=== PATIENT | male | born 1990 | race Caucasian/White ===

== ENCOUNTER 2024-12-10 15:33 | Emergency (ER) | payer OTHER, SELFPAY ==
[2024-12-10 15:39] VITALS: BP 131/94
--- NOTE | 2024-12-10 15:39 | ED.GENMED ---
History of Present Illness
General
Chief Complaint: Skin Surface Trauma
Source: patient
Exam Limitations: none
Time Seen by Provider: 12/10/24 15:35
Nursing documentation reviewed up to this point in time: agreed with
History of Present Illness
History of Present Illness:
The patient is a pleasant 34-year-old man who arrives from jail after cutting his left forearm multiple times. Patient reports that he did it to ' feel pain'. Patient reports he has been feeling depressed lately due to a girl. He reports from
time to time he feels helpless and hopeless. Patient reports he has a history of cutting. He reports that he did not mean to cut deeply, however, there is an area of skin that keeps bleeding, which is why he was brought to the ED.. Patient
reports he cut the skin about 2 hours prior to arrival. He denies any other injury. [facility] guards are with the patient and reports that the patient will now be on a suicidal watch and report that he will be seen by a mental health worker on a
daily basis. Patient is still requesting to speak to [facility] in the ED. I asked patient if he tried to cut himself to kill himself and he said no. Patient reports that he had a tetanus shot between 5 and 10 years ago.
Past History
Past History
ED Past Medical History: Psychiatric
ED Past Surgical History: Orthopedic
Social History
Tobacco: Other
Alcohol: Other
Drug: Other
Personal: Single
Living: jail
Employment: Not employed
Family History
Family History: Unable to obtain
Review of Systems
Review of Systems
Allergies reviewed?: Yes
All Other Systems: ROS reviewed and negative except as documented in HPI and ROS
Constitutional: Reports no symptoms
EENT: Reports no symptoms
Respiratory: Reports no symptoms
Cardiac: Reports no symptoms
ABD/GI: Reports no symptoms
: Reports no symptoms
Musculoskeletal: Reports no symptoms
Skin: Reports other
Neurological: Reports no symptoms
Endocrine: Reports no symptoms
Hematologic/Lymphatic: Reports no symptoms
Psychiatric: Reports depression and anxiety
Phy Exam
Physical Exam
Physical Exam:
Physical Exam
General: no apparent distress, not acutely ill. Well and comfortable appearing, conversational
Neck: supple. no meningeal signs. normal psoterior pharynx
Heart: s1/s2 regular rate and rhythm, no murmur. equal radial pulses.
Lungs: no acute respiratory distress. clear bilaterally
Abdomen: normal bowel sounds. not tender. no CVAT
Neuro: alert and oriented. no focal neurological deficits
Skin: Multiple superficial horizontally aligned cut moreira along dorsal aspect of left forearm. Bleeding controlled, however, there is a's very small area that had mild oozing for which I applied glue but no sutures
were needed nor Steri-Strips
Psychiatric: well kept. interactive and cooperative
Extremities: no edema. no calf tenderness. negative homans. good distal pulses. No bony tenderness. Strong pulses in bilateral hands. Excellent sensation and motor of bilateral fingers
Course
Orders/Labs/Results
Orders:
Orders
12/10/24 15:49
1:1 Observation - Suicide/ Violent Behavior As Directed
12/10/24 17:31
Crisis Consult Urgent
Reason for Consult: cutting
Vital Signs
Initial and Last Documented VS:
Initial Vital Signs
Temp Pulse Resp BP Pulse Ox
98.4 F 64 16 131/94 98
12/10/24 15:39 12/10/24 15:39 12/10/24 15:39 12/10/24 15:39 12/10/24 15:39
Last Documented Vital Signs
Temp Pulse Resp BP Pulse Ox
98.4 F 62 16 125/76 97
12/10/24 15:39 12/10/24 17:20 12/10/24 17:20 12/10/24 17:20 12/10/24 17:20
MDM/Problems Addressed
Differential Diagnosis Includes:
Suicidal attempt, passive suicidality, cutting to relieve stress, acute anxiety and depression
MDM/Problems Addressed:
Patient presents with acute superficial lacerations of left forearm which were intentional and feelings of acute depression anxiety
Chronic conditions affecting care: Psychiatric illness
Acute Exacerbation and/or Progression of Chronic Illness: Psychiatric illness
*Pulse Oximetry
Patient hypoxic: no
*EKG
Interpreted by ED Provider?: NA
*Ux Specialist Interpretation
Rate: Ux Specialist- N/A
*Critical Care Note
Total Time (30-74mins, 75-104mins- exclusive of procedures): Not Applicable
Data Reviewed
Source: patient
Patient Management
Social determinants of health affecting care: Other ([facility] guards assured me that patient will be on a suicidal watch and will get a mental health assessment each day)
Escalation/DeEscalation of care consider admission/obs:
Patient evaluated by [facility] and given outpatient resources. Patient will get mental health support in jail.
Left forearm irrigated multiple times by me. No sign of foreign body. No sign of significant soft tissue injury or any bony injury. No need for sutures or Steri-Strips. Very small amount of glue applied for tiny oozing of blood. Wound covered
with antibiotic ointment, nonadherent dressing and Kerlix by me
ED Attending Note
-
Portions of this chart may have been created with voice recognition software.� Occasional wrong word or��sound alike� substitutions may have occurred due to the inherent limitations of voice recognition software.
Discharge Plan
Departure
Patient Disposition: Home (Routine Discharge)
Date of Disposition: 12/10/24
Time of Disposition: 18:02
Patient with high blood pressure during this ER visit?: Yes
Condition: Fair
Covid-19: Not Applicable
Discharge Problem:
Intentional self-harm
Instructions: Depression, Adult (DC), Laceration Repair With Glue (DC), Self-harm in adults - ED discharge instructions, BLOOD PRESSURE
Prescriptions:
New
fluoxetine 20 mg capsule
20 mg PO DAILY Qty: 30 0RF
No Action
clonidine HCl 0.1 MG tablet
0.1 mg PO .TAPER
Patient Comments:
04/17/2021: TAPER DOSE: 0.1mg TID from 04/17-04/20, 0.1mg BID from 04/21-04/22, 0.05mg BID from 04/23-04/24
ondansetron HCl 4 MG tablet
4 mg PO TIDPRN PRN (Reason: nausea/vomiting)
thiamine HCl (vitamin B1) 100 MG tablet
100 mg PO DAILY
magnesium oxide [MagOx] 400 MG tablet
400 mg PO DAILY
bismuth subsalicylate [Stomach Relief] 30 ML suspension
30 ml PO BIDPRN PRN (Reason: gi upset)
clonazepam 2 MG tablet
2 mg PO .TAPER
Patient Comments:
04/17/2021: TAPER DOSINmg BID from 04/17-04/18, 1mg TID from 04/19-04/20, 1mg BID from 04/21-04/22, 0.5mg BID from 04/23-04/24, 0.5mg Daily from 04/25-04/26
folic acid 1 MG tablet
1 mg PO DAILY
ondansetron HCl (PF) 4 MG/2 ML solution
4 mg IM TIDPRN PRN (Reason: if po cannot be taken)
multivitamin with folic acid [Tab-A-Jerome] 1 TABLET tablet
1 tab PO DAILY
Referrals:
[facility] [Family Provider] -
Activity Restrictions/Additional Instructions:
Keep the left forearm dressing on and dry for 48 hours. After 48 hours, the dressing could be taken off and the wound can get wet. Please apply antibiotic ointment and cover the wound on a daily basis until it is scabbed over completely.
You should start taking fluoxetine (Prozac) 20 mg once a day
Interventions
Interventions:
*Risk Screen - Suicide Last Done: 12/10/24 15:39
*General Assessment Last Done: 12/10/24 15:39
*Neglect/Abuse Screening Last Done: 12/10/24 15:39
*ED- Fall Risk Assessment Last Done: 12/10/24 15:50
*ED COVID-19 Vaccine History Last Done: 12/10/24 15:50
*Nursing Disposition Last Done: 12/10/24 18:14
ED-Skin Assessment Last Done: 12/10/24 15:51
ED-Suicide Risk Assessment Last Done: 12/10/24 15:57
Discharge Date and Time
Discharge Date/Time: 12/10/24 18:16
Print Language: MOZAMBICAN
[2024-12-10 15:50] VITALS: BMI 24.6
--- NOTE | 2024-12-10 16:24 | EDRN ---
Addendum entered by Basia Avendano RN 12/10/24 16:24:
done at 16:00.
Original Note:
DSD of ABD pad over area removed w/ area extensively cleansed w/ saline and wet saline dressing placed over area.
--- NOTE | 2024-12-10 16:24 | EDRN ---
Dr. Cantor in to see pt.
--- NOTE | 2024-12-10 16:32 | EDRN ---
Pt will be able to speak w/ crisis while here per Dr. Cantor. Pt administered a boxed lunch at this time.
[2024-12-10 17:20] VITALS: BP 125/76
--- NOTE | 2024-12-10 17:31 | EDRN ---
Pt given boxed lunch #2 at his request. Pt is awaiting woodworker helper to see him. Pt is awaiting disposition at this time.
--- NOTE | 2024-12-10 18:13 | EDRN ---
Dr. Cantor took care of wound and dressed it.
== END 2024-12-10 18:16 | disposition home or self-care (01) ==
LOC: EMR 15:33
PROVIDERS: EMERGENCY PHYSICIAN Emergency Medicine
DX: S51.812A Laceration without foreign body of left forearm, initial encounter (principal); X78.8XXA Intentional self-harm by other sharp object, initial encounter; W26.9XXA Contact with unspecified sharp object(s), initial encounter; Y92.149 Unspecified place in prison as the place of occurrence of the external cause; R03.0 Elevated blood-pressure reading, without diagnosis of hypertension; F32.A Depression, unspecified; F41.9 Anxiety disorder, unspecified; F31.9 Bipolar disorder, unspecified; Z91.52 Personal history of nonsuicidal self-harm; Z87.820 Personal history of traumatic brain injury
CPT/HCPCS: 99283

== ENCOUNTER 2025-03-24 03:38 | Inpatient (IN) | payer OTHER, SELFPAY ==
[2025-03-23] VITALS (8 sets, daily range): BP systolic 107–136; BP diastolic 61–96; BMI 25.7
[2025-03-23 17:59] LABS: Hematocrit 36.7 % (39.0-52.0); Hemoglobin 12.8 g/dL (13.0-18.0); Mean Corp Hgb Conc. 34.9 g/dL (33.0-37.0); Mean Corpuscular Volume 84.2 fL (80.0-94.0); Nucleated Red Blood Cells % 0 % (-); Platelet Count 138 10^3/uL (130-400); Red Cell Dist. Width 12.2 % (11.5-14.5)
[2025-03-23 18:04] LABS: APTT 35.1 Sec (23.4-35.0); INR 1.03; PT 13.8 Sec (11.4-14.6)
[2025-03-23 18:10] LABS: ALT (SGPT) 275 U/L (0-50); AST (SGOT) 232 U/L (17-59); Albumin 4.1 g/dl (3.5-5.0); Alkaline Phosphatase 145 U/L (38-126); Blood Urea Nitrogen 14 mg/dl (9-20); Calcium 8.7 mg/dl (8.4-10.2); Carbon Dioxide 25 mmol/L (22-30); Chloride 101 mmol/L (98-107); Estimated Creatinine Clearance 122 ml/min; Glucose 127 mg/dl (70-99); Potassium 3.6 mmol/L (3.5-5.1); Sodium 132 mmol/L (135-145); Total Protein 6.9 g/dl (6.3-8.2); eGFR > 60.00
[2025-03-23 18:14] LABS: COVID-19 Antigen Negative (Negative)
[2025-03-23 18:18] LABS: Troponin I < 0.012 ng/ml
[2025-03-23] MEDS: TYLENOL 1000 MG PO (18:36)
[2025-03-23] MEDS: TORADOL 15 MG IV (18:37)
[2025-03-23] MEDS: NSS 1000 IV (18:37)
--- NOTE | 2025-03-23 18:43 | ED.GENMED ---
History of Present Illness
General
Chief Complaint: Fever
Source: patient
Exam Limitations: none
Time Seen by Provider: 03/23/25 17:38
Nursing documentation reviewed up to this point in time: agreed with
History of Present Illness
History of Present Illness:
Patient is a 35-year-old male who presents to the emergency department from snf for evaluation of fevers and body aches. Patient reports a few days of high fevers up to 103F and full body aches. Patient reports multiple other associated symptoms
including nausea, vomiting, as well as an episode of diarrhea. He also reports chest discomfort. Patient denies any dysuria or hematuria. He denies any significant headache.
Patient reports that he had a Sublocade injection in his right abdomen 3 days ago and the area now seems red, warm, and firm�this has not happened to him with prior subacute injections.
In addition�patient was recently on antibiotics, clindamycin for scabs on his nose and his body that appear to be nonhealing. He believes that clindamycin caused him to have some hallucinations so he stopped this medication early. This was a few
days ago and he has not noticed any additional hallucinations.
Patient does report a past history of IV drug use although last use was many years ago.
Patient has been taking Prozac since December.
Past History
Past History
ED Past Medical History: Psychiatric
ED Past Surgical History: Orthopedic
Social History
Tobacco: Other
Alcohol: Other
Drug: Other
Personal: Single
Living: snf
Employment: Not employed
Family History
Family History: Unable to obtain
Review of Systems
Review of Systems
Allergies reviewed?: Yes
All Other Systems: ROS reviewed and negative except as documented in HPI and ROS
Phy Exam
Physical Exam
Physical Exam:
Vitals: Patient's vital signs are stable. Febrile to 102.7F
General: Patient is well appearing, no acute distress
Skin: Warm and dry, no rashes or lesions
Head: Normocephalic, atraumatic
Eyes: Sclera nonicteric. EOMs intact. No nystagmus.
Throat: Protecting airway
Neck: Normal ROM, no cervical spine tenderness, no meningismus
Cardiac: Regular rate and rhythm, no murmurs. No reproducible chest wall tenderness.
Pulm: Normal respiratory effort, no wheezes, rales, rhonchi heard on exam.
Abdomen: Abdomen soft with mild diffuse tenderness. Right mid abdomen with focal area of erythema and tenderness at location of recent Sublocade injection.
Back: No midline spinal tenderness.
Extremities: No evidence of cyanosis or edema. Scattered excoriations on bilateral upper extremities and nasal bridge.
Neuro: AAOx3. Grossly intact. No tremor
Psychiatric: Normal affect.
Sepsis
Sepsis Screening
Sepsis Assessment: Sepsis Ruled Out
Sepsis Screen
Sepsis Screen: Sepsis Ruled Out
Date: 03/23/02
Time: 20:00
Course
Orders/Labs/Results
Orders:
Orders
03/23/25 17:41
CMP [Comprehensive Metabolic Panel] Urgent
Complete Blood Count/With Diff Urgent
Lipase Urgent
Comment: ADD ON
Monotest Urgent
Comment: ADD ON
03/23/25 17:42
Electrocardiogram (*1) Urgent
Reason for Study: Tachycardia
EKG- Treatment ONCE
03/23/25 17:43
COVID-19 Antigen Urgent
Source: Nasal Swab
Lactic Acid Urgent
PT/INR [Prothrombin Time] Urgent
PTT Urgent
Troponin I Urgent
Influenza A+B Rapid Molecular Urgent
SARKIS Source: Nasal Swab
Specimen Description:
03/23/25 17:53
CXR2 [CR Chest - 2 Views ] Urgent
Comment:
Reason For Exam: shortness of breath
03/23/25 18:10
0.9% Sodium Chloride 1000 ml [Nss] 1,000 ml IV BOLUS
Acetaminophen [Tylenol] 1,000 mg PO NOW STA
Ketorolac [Toradol] 15 mg IV NOW STA
03/23/25 18:14
Add On- LAB Urgent
Tests Added?: lipase, monospot
03/23/25 18:15
Blood Culture Q30M
SARKIS Source: Blood/Venous
Specimen Description:
03/23/25 18:45
Lyme Progressive Urgent
Urinalysis Reflex To Culture Urgent
Date Specimen was Collected: 03/23/25
Time Specimen was Collected: 18:18
Urine Microscopic Reflex Cult Urgent
Blood Culture Q30M
SARKIS Source: Blood/Venous
Specimen Description:
03/23/25 20:03
CT Abd/pelvis W Iv Cont Urgent
Comment:
Reason For Exam: Fever, abdominal pain, body aches
03/24/25 01:22
Vancomycin [Vancocin] 2,000 mg 0.9% Sodium Chloride 500 ml [Nss] 500 ml IV NOW
Abnormal Lab Results
03/23/25 03/23/25 03/23/25
17:41 17:43 18:45
RBC 4.36 L 10^6/uL
(4.70-6.10)
Hgb 12.8 L g/dL
(13.0-18.0)
Hct 36.7 L %
(39.0-52.0)
MPV 10.8 H fL
(7.4-10.4)
Absolute Lymphs (auto) 1.0 L 10^3/uL
(1.2-3.4)
Absolute Monos (auto) 0.9 H 10^3/uL
(0.1-0.6)
Lymphocytes % 12.3 L %
(20.5-51.1)
Monocytes % 11.8 H %
(1.7-9.3)
APTT 35.1 H Sec
(23.4-35.0)
Sodium 132 L mmol/L
(135-145)
Glucose 127 H mg/dl
(70-99)
AST 232 H U/L
(17-59)
ALT 275 H U/L
(0-50)
Alkaline Phosphatase 145 H U/L
(38-126)
Urine RBC 3-6 A /HPF
(0-2)
Urine Albumin (Reflex) 1+ A
(Neg - Trace)
03/23/25 17:41
03/23/25 17:41
Vital Signs
Initial and Last Documented VS:
Initial Vital Signs
Temp Pulse Resp BP Pulse Ox
102.7 F H 105 18 136/96 95
03/23/25 17:32 03/23/25 17:32 03/23/25 17:32 03/23/25 17:32 03/23/25 17:32
Last Documented Vital Signs
Temp Pulse Resp BP Pulse Ox
98.4 F 64 15 106/61 95
03/23/25 23:49 03/24/25 01:00 03/24/25 00:49 03/24/25 01:00 03/24/25 00:45
MDM/Problems Addressed
Differential Diagnosis Includes:
Not limited to: Viral illness, parasitic infection, bacteremia, cystitis, cellulitis, endocarditis, etc.
MDM/Problems Addressed:
35-year-old male with a few days of persistently elevated fever associated with myalgias. Also reports possible injection site reaction from Sublocade on abdomen, nausea, vomiting. He does have intermittent chest discomfort. No significant
headache, neck stiffness. Patient febrile and mildly tachycardic on arrival with otherwise stable vital signs. On exam�patient appears in no distress. He is neurologically intact without any focal deficits. There is no tremor. He has no
meningeal signs. Cardio/pulmonary assessment unremarkable with no evidence of heart murmur. Abdomen soft with diffuse tenderness and small area of erythema of right mid abdomen at location of Sublocade injection. He does have scattered
excoriations on bilateral upper extremities and nasal bridge -he apparently was recently on clindamycin which she stopped early. Differential broad. Possible viral illness versus parasitic infection however patient has significant risk factors
including living environment in snf and history of IV drug use. Low suspicion for endocarditis. Apparently there was some concern at snf for possible serotonin syndrome although patient has no symptoms other than fever�feel this is unlikely
diagnosis. ED plan: Labs, UA, troponin, viral studies, blood cultures, CT abdomen and chest x-ray. Will treat fever and give IV fluids. Will monitor very closely
Update: CBC without clinically significant abnormalities. CMP reveals transaminitis which she has had in the past although it is increased from prior. Troponin undetectable and urine shows no evidence of infection. Viral studies including COVID,
influenza, and mono negative. Chest x-ray without acute findings. CT abdomen with out acute infectious intra-abdominal pathologies however there is an area on the right abdominal wall at site of recent subacute injection with concern for either
possible vascular malformation or cellulitis. Patient's fever has reduced following Tylenol. He remains nontoxic-appearing. Workup in ED essentially negative however given significant risk factors�feel patient should be observed in hospital and
treated with IV antibiotics pending blood cultures. Vancomycin ordered Emergency Department to cover for possible MRSA with recent skin lesions and treat with clindamycin. Patient accepted to hospitalist service in stable condition.
Chronic conditions affecting care:
History of IV drug use
Acute Exacerbation and/or Progression of Chronic Illness:
N/A
*Radiology
Radiology exam reviewed: radiology read reviewed
*Pulse Oximetry
SaO2: 94
Oxygen Mode of Delivery: Room air
Patient hypoxic: no
*EKG
Interpreted by ED Provider?: Yes
EKG Intrepretation Date: 03/23/25
Interpretation: abnormal
Comparison EKG: changes noted
Heart Rate: 84
Rate: normal
Rhythm: sinus
Bartelso: normal axis
Interval: normal interval
QRS Pattern: normal QRS
Ischemia: no ischemia
*Interactive Account Manager Interpretation
Rate: normal
Interpretation: normal
Heart Rate: 68
Rhythm: sinus
*Critical Care Note
Total Time (30-74mins, 75-104mins- exclusive of procedures): Not Applicable
Patient Management
Discussion with other providers: Hospitalist
Escalation/DeEscalation of care consider admission/obs:
Admit for IV antibiotics pending blood culture, further monitoring
ED Attending Note
-
Portions of this chart may have been created with voice recognition software.� Occasional wrong word or��sound alike� substitutions may have occurred due to the inherent limitations of voice recognition software.
Discharge Plan
Departure
Patient Disposition: Admit
Date of Disposition: 03/24/25
Time of Disposition: 01:18
Presentation/result/management discussed w/ accepting MD/DO: Hospitalist
Discharge Problem:
Fever
Prescriptions:
No Action
ondansetron HCl 4 MG tablet
4 mg PO TIDPRN PRN (Reason: nausea/vomiting)
fluoxetine 20 mg Tablet
20 mg PO DAILY
buprenorphine 300 mg/1.5 mL Solution, Extended Rel Syringe
300 mg SC QMONTH
fluoxetine 20 mg capsule
10 mg PO HS
Referrals:
NONE,* [Family Provider, Internal Medicine]
Interventions
Interventions:
*Risk Screen - Suicide Last Done: 03/23/25 17:52
*General Assessment Last Done: 03/23/25 17:32
*Neglect/Abuse Screening Last Done: 03/23/25 17:32
*ED- Fall Risk Assessment Last Done: 03/23/25 17:32
*ED COVID-19 Vaccine History Last Done: 03/23/25 17:32
ED- Neurological Assessment Last Done: 03/23/25 19:50
ED-Skin Assessment Last Done: 03/23/25 19:50
Discharge Date and Time
Print Language: OCCITAN
[2025-03-23 18:55] LABS: Urine Character Clear (Clear)
[2025-03-23 19:00] LABS: Lipase 125 U/L (23-300)
[2025-03-23 19:33] LABS: Urine Squamous Cell 0-2 /LPF (Few)
[2025-03-23 19:34] LABS: Urine White Cell 0-2 /HPF (0-5)
[2025-03-24] VITALS (9 sets, daily range): BP systolic 101–129; BP diastolic 58–76; BMI 25.1
[2025-03-24] MEDS: VANCOCIN 540 MG IV (01:50)
--- NOTE | 2025-03-24 02:45 | HPS.HSE ---
Addendum entered and electronically signed by Nora May MD 03/24/25 03:29:
ID consulted
Original Note:
Family Physician
-
Family Physician: * NONE
Chief Complaint
-
fever
History of Present Illness
Mr. Jaden Knutson is a 35 yo man with hx IVDU, currently incarcerated (since August 2024) presents with fever up to 103 and body aches.
Patient states 5 days ago he was injected with Sublicade in right abdomen and since then he has had some tenderness in area. He started having fevers, body aches and joint pains following. He was also started on Clindamycin at this time for a
pimple that he picked on his nose but reports that he had psychiatric side effects from it. Yesterday he had nausea, vomiting, and diarrhea.
He last used IV drugs multiple years ago.
No chest pain or shortness of breath. No significant RUQ tenderness. No LE swelling. He has scattered scabs on his arms and posterior neck that he states aren't healing.
Medical History
Past Medical History
Past Medical History: Reports Other
Past Surgical History: Reports Other
Social History
Drug: Former User
Family History
Family History: Not pertinent
Allergies / Home Medications
Allergies reflects when Allergies were last updated in [employer].
Home Medications with original date entered in [employer]
Allergy/Medication List:
Allergies
Allergy/AdvReac Type Severity Reaction Status Date / Time
No Known Allergies Allergy Unverified 12/10/24 15:39
Home Medications
ondansetron HCl 4 mg tablet 4 mg PO TIDPRN PRN nausea/vomiting 04/17/21
buprenorphine 300 mg/1.5 mL solution,exten.rel.subcutaneous syringe 300 mg SC QMONTH 03/23/25
fluoxetine 20 mg capsule 10 mg PO HS 03/23/25
fluoxetine 20 mg tablet 20 mg PO DAILY 03/23/25
Review of Systems
-
History Source: Patient
A 12 point ROS was completed and negative except as noted: Yes
Physical Exam
Vital Signs
Vital Signs
Temp Pulse Resp BP Pulse Ox
98.4 F 64 15 106/61 95
03/23/25 23:49 03/24/25 01:00 03/24/25 00:49 03/24/25 01:00 03/24/25 00:45
Physical Exam
General: No Apparent Distress
HEENT: PERRLA
Respiratory: Clear; No Wheezes
Cardiac: S1/S2 and Regular Rhythm
GI: Soft and Non Tender
Musculoskeletal: No Edema and Other (mid right abdomen with area of induration at site of injection)
Skin: Warm, Dry and Rash (scatter scabs on arms and upper back )
Neuro: AO x 3
Psych: Calm
Laboratory Results
-
03/23/25 17:41
03/23/25 17:41
Laboratory Results
PT 13.8 Sec (11.4-14.6) 03/23/25 17:43
INR 1.03 03/23/25 17:43
APTT 35.1 Sec (23.4-35.0) H 03/23/25 17:43
Lactic Acid 1.0 mmol/L (0.7-2.0) 03/23/25 17:43
Total Bilirubin 0.6 mg/dl (0.2-1.3) 03/23/25 17:41
AST 232 U/L (17-59) H 03/23/25 17:41
ALT 275 U/L (0-50) H 03/23/25 17:41
Alkaline Phosphatase 145 U/L (38-126) H 03/23/25 17:41
Troponin I < 0.012 ng/ml 03/23/25 17:43
Lipase 125 U/L (23-300) 03/23/25 17:41
Data Reviewed
-
Diagnostic Radiology: Report Reviewed by me
Lab Data: Labs Reviewed by me
Impression/Plan
-
Mr. Jaden Knutson is a 35 yo man with hx IVDU, currently incarcerated presents with fever up to 103.
Triage VS: T 102.7, P 105, RR 18, BP 136/96, SpO2 95%
LABS: WBC 7.7, Hg 12.8, PLT 138, Na 132, K+ 3.6, Cl 101, CO2 25, Cr 0.9, Glucose 127, Lactate 1.0, T. Bili 0.6, AST 232, ALT 275, Alk PHos 145
Trop < 0.012, Lipase 125
CXR
IMPRESSION:
No evidence of active cardiopulmonary disease.
Covid negative, Flu negative
Abdomen/Pelvis CT
Mural thickening of the bladder, suspicious for cystitis.
Cluster of prominent vessels within the right ventral abdominal wall subcutaneous soft tissues overlying the right rectus musculature, with surrounding inflammatory stranding. This ay represent a vascular malformation.. the associated stranding may
represent a ruptured AV malformation, thrombosed venous malformation or a superimposed infection/cellulitis
Sepsis (fever and elevated P)
Abnormal Abdomen/Pelvis CT with finding of possible ruptured AV malformation versus thrombosed venous malformation with a superimposed infection/cellulitis - Area is at recent sublicade injection
Transaminitis
Body aches/joint pains/ Vomiting and Diarrhea
-unclear presentation. Vital versus bacteremia versus cellulitis versus ruptured AV malformation. With recent injection and abnl CT appearance, will continue with IV Vancomycin while awaiting culture.
-procalcitonin in AM
-follow up dedicated US of abdomen, I will touch base with vascular surgery in AM
-follow up hepatitis serologies
-NS @ 100
Depression
-STATE PATROL OFFICER Fluoxetine
DVT PPx Lovenox subQ
FULL CODE
76 minutes spent on patient care
[2025-03-24] MEDS: NSS 1000 IV ×2 (05:30→15:57)
[2025-03-24 06:35] LABS: Hematocrit 38.3 % (39.0-52.0); Hemoglobin 12.9 g/dL (13.0-18.0); Mean Corp Hgb Conc. 33.7 g/dL (33.0-37.0); Mean Corpuscular Volume 86.7 fL (80.0-94.0); Nucleated Red Blood Cells % 0 % (-); Platelet Count 131 10^3/uL (130-400); Red Cell Dist. Width 12.4 % (11.5-14.5)
[2025-03-24 06:47] LABS: Blood Urea Nitrogen 13 mg/dl (9-20); Calcium 8.3 mg/dl (8.4-10.2); Carbon Dioxide 25 mmol/L (22-30); Chloride 106 mmol/L (98-107); Estimated Creatinine Clearance 122 ml/min; Glucose 108 mg/dl (70-99); Magnesium 1.9 mg/dl (1.6-2.3); Potassium 3.8 mmol/L (3.5-5.1); Sodium 137 mmol/L (135-145); eGFR > 60.00
[2025-03-24 06:51] LABS: Procalcitonin 0.18 ng/ml (0.0-0.25)
--- NOTE | 2025-03-24 08:00 | PTCARENOTE ---
Patient refusing Prozac. Patient states, 'I stopped taking Prozac a week ago, because of hallucinations.'
[2025-03-24 08:18] LABS: Hepatitis B Surface Antigen Negative (Negative)
--- NOTE | 2025-03-24 08:25 | PHA.VAN.IN ---
Assessment
- Assessment
Renal Function: Appears similar to baseline
AUC Dosing Plan
- Dosing Variables
Dosing Weight (kg): 82
Dosing CrCl (ml/min): 122
Vd coefficient (L/kg): 0.7
- Empiric Dosing
Initial / Loading Dose: 2000mg - 03/24 01:50
Maintenance Regimen: Vanc 1500mg Q12H starting today at 1800
Estimated AUC (mcg*h/mL): 534
Estimated Peak (mcg*h/mL): 36
Estimated Trough (mcg/ml): 12
Estimated Half Life (H): 6.6
- Monitoring
No levels ordered at this time: consider levels in next few days
Pharmacokinetics Vancomycin I
- -
Patient Age: 35
Patient Sex: Male
Vancomycin Day #: 1
Indication: Skin And Soft Tissue
Requesting Provider: Dr. May
Pertinent Antimicrobial Allergies:
NKDA
Height / Weight:
Height 5 ft 11 in
Actual Weight 81.647 kg
Pertinent Past Medical History: IV EVERARDO hx (buprenoprhine SC)
- Vital Signs / Lab Results
Temp Pulse Resp BP Pulse Ox
100.7 F H 82 21 112/61 99
03/24/25 07:43 03/24/25 07:43 03/24/25 07:43 03/24/25 07:43 03/24/25 07:43
Lab Results - Hematology
03/23/25 03/24/25
17:41 06:06
WBC 7.7 5.5
Lab Results - Chemistry
03/23/25 03/24/25
17:41 06:06
BUN 14 13
Creatinine 0.9 0.9
Estimated Creat Clear 122 122
Albumin 4.1
03/23/25
17:43
Lactic Acid 1.0
Lab Results - Urine
03/23/25
18:45
Urine Nitrite (Reflex) Negative
Leukocyte Esterase Rfl Negative
Urine WBC (Reflex) 0-2
Ur Squamous Epith Cells 0-2
Microbiology Results
03/23/25 17:43 Influenza Types A & B (MINOR) - Final
Nasal Swab Negative for Influenza A & B, NAAT
Negative results must be combined with clinical observations
and patient history.
Nucleic Acid Amplification test (NAAT)performed on the
[employer] NOW platform.
[2025-03-24 08:36] LABS: Hepatitis C Antibody Negative (Negative)
--- NOTE | 2025-03-24 09:00 | W.PN.HOSP.TC ---
Today's Communication/Plan
-
see plan
Assessment / Plan
Assessment / Plan
35 M, incarcerated since 09/11, presents with one week of fevers and generalized body aches/joint pains/fever with vomiting/diarrhea.� He had buprenorphine injection in abdomen one week ago and area now indurated with CT showing possible AV
malformation with rupture versus cellulitis.�
Gen: NAD, AAOx3.
Eyes: EOMI, PERRLA, no scleral icterus.
Neck: supple.
CV: RRR, +S1/S2, no m/r/g.
Resp: CTAB, no rales, wheezes, or rhonchi.
Abd: +BS, soft, NT, ND
Skin: faint, nonconfluent macular rash on abdomen. Small R-sided puncture site. Area of firmness that is nontender and nonfluctuant deep to the puncture site.
Neuro: CN 2-12 intact, non-focal.
Psych: Normal mood and affect.
CT A/P: Mild urinary bladder wall thickening which is nonspecific although can be seen with cystitis. Small focus of stranding in the right anterior abdominal wall which may represent superficial contusion, possible focal infection. Small vascular
malformation is possible given the mildly prominent adjacent vessel. No fluid collection. Moderate colonic stool burden.
CXR: No evidence of active cardiopulmonary disease.
SIRS:
-with possible underlying AVM rupture
-check Abd U/S with elevated transaminases/AP
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
-Flu/COVID/[place]/acute hepatitis NEG
-currently on empiric Vanco. Not seeing any evidence of cellulitis on physical exam today.
-follow BCxs
-ID consulted, will d/w ID
Depression: Cont Prozac
Hiccups: Thorazine PRN
FULL/Lovenox
Anticipated Discharge: 24 - 48 hours
Subjective/Interval History
-
Date of Service: March 24, 2025
Objective Data
-
Labs:
Laboratory Results
03/24/25
06:06
WBC 5.5
Hgb 12.9 L
Hct 38.3 L
Plt Count 131
Sodium 137
Potassium 3.8
Chloride 106
Carbon Dioxide 25
BUN 13
Creatinine 0.9
Glucose 108 H
Calcium 8.3 L
Vital Signs:
Vital Signs
Temp Pulse Resp BP Pulse Ox
100.7 F H 82 21 112/61 99
03/24/25 07:43 03/24/25 07:43 03/24/25 07:43 03/24/25 07:43 03/24/25 07:43
I&O
03/23/25 03/24/25 03/25/25
06:59 06:59 06:59
Intake Total 960 / 960
Output Total 700 / 700
Balance 260 / 260
--- NOTE | 2025-03-24 09:47 | PTCARENOTE ---
Patient c/o chest pain, SOB and unable to stop hiccups. RA 99% 122/72 72 99.9. Physician made aware and at beside now.
--- NOTE | 2025-03-24 10:10 | CM ---
Alert awake oriented patient who is currently in [facility] . Spoke with Helena at [facility] she said he does not use adaptive devices. [facility] guards are with patient.Pt on IV antibiotics.
Pharmacy Su
PCP DR Almaraz
PLAN Return to [facility]
report [phone]
fax [phone]
[2025-03-24] MEDS: TYLENOL 650 MG PO ×3 (11:05→23:28)
[2025-03-24] MEDS: THORAZINE 25 MG IM ×2 (11:10→17:57)
--- NOTE | 2025-03-24 11:45 | CON.ID ---
Consultation
-
Date/Time Consultation Requested: 03/24/2025 0450
Date/Time Consultation Performed: 03/24/2025 1114
Requesting Provider: Dr. May
Performing Provider: Dr. Galeano
Reason for Consultation: Fever
Chief Complaint / Past History
History of Present Illness
Jaden Vargas is a 35-year-old man being evaluated at the request of Dr. May in regards to fever. History is obtained from chart review, along with patient interview.
The patient has a remote history of IVDA, and currently resides at the [facility]. He reports approximately 7 days ago he received a injection of Sublocade. Around the same time he also states he began to 'pick at his
facial blackheads', and was placed on a course of clindamycin. He notes that he developed hallucinations over the next several days. Approximately 5 days ago he began with fevers. He was seen in the nurses station at the correctional facility and
given Tylenol. Over the past several days his fevers have persisted and he ultimately presented to the emergency room here at [place] for further workup.
At this time he reports some anterior chest discomfort. He reports a cough, but only rare phlegm. He currently notes ongoing fevers and general malaise and bodyaches.
Past History
Additional Past Surgical History:
Left zygomatic surgery secondary to bite
Left arm surgery with plate
Allergy History:
No Known Allergies Allergy (Unverified 12/10/24 15:39)
Medications Reviewed: Yes
Current Antibiotics:
Vancomycin
Social History
Tobacco: Non-Smoker
Alcohol: None
Drug: None
Personal: Single
Living: Half-Way
Employment: Not Employed
Family History
Family History: Not Pertinent
Review of Systems
Vital Signs
Temp Pulse Resp BP Pulse Ox
99.9 F 72 20 122/72 99
03/24/25 09:46 03/24/25 09:46 03/24/25 09:46 03/24/25 09:46 03/24/25 09:46
Physical Exam
Physical Exam
Constitutional: No Acute Distress, Well Developed, Comfortable and Non-toxic
Head: Normocephalic
Eyes: Pupils Equal, Pupils Round, No Conjunctival Hemorrhage and Sclera Anicteric
Oral: No Thrush and No Ulcers
Cardiovascular: Regular Rate and S1/S2; Negative S3/S4
Pulmonary: Clear and Non Labored; Negative Wheezes, Rales or Rhonchi
Gastrointestinal: Soft, Non Tender, Non Distended, Normal Bowel Sounds, No Rebound and No Guarding
Musculoskeletal: Negative Joint Swelling or Joint Effusion
Skin: Warm and Dry; Negative Rash or Jaundice
Neurological: Awake and Alert
Psychological: Calm
Lab / Diagnostic Study Results
03/24/25 06:06
03/24/25 06:06
Abs Immat Gran (auto) 0.0 10^3/uL (0-0.05) 03/24/25 06:06
Absolute Neuts (auto) 3.8 10^3/uL (1.4-6.5) 03/24/25 06:06
Absolute Lymphs (auto) 1.0 10^3/uL (1.2-3.4) L 03/24/25 06:06
Absolute Monos (auto) 0.6 10^3/uL (0.1-0.6) 03/24/25 06:06
Absolute Basos (auto) 0.1 10^3/uL (0-0.2) 03/24/25 06:06
Immature Gran % 0.2 % (0-0.5) 03/24/25 06:06
Neutrophils % 68.6 % (42.2-75.2) 03/24/25 06:06
Lymphocytes % 17.9 % (20.5-51.1) L 03/24/25 06:06
Monocytes % 11.3 % (1.7-9.3) H 03/24/25 06:06
Eosinophils % 1.1 % (0-6) 03/24/25 06:06
Basophils % 0.9 % (0-2) 03/24/25 06:06
PT 13.8 Sec (11.4-14.6) 03/23/25 17:43
INR 1.03 03/23/25 17:43
Lactic Acid 1.0 mmol/L (0.7-2.0) 03/23/25 17:43
Procalcitonin 0.18 ng/ml (0.0-0.25) 03/24/25 06:06
Ur Squamous Epith Cells 0-2 /LPF (Few) 03/23/25 18:45
Microbiology Results
Micro:
03/23/25 18:45 Blood Culture - Pending
Blood/Venous
03/24/25 06:07 Blood Culture - Pending
Blood/Venous
03/24/25 06:01 MRSA Screen - Pending
Nose
03/23/25 17:43 Influenza Types A & B (MINOR) - Final
Nasal Swab Negative for Influenza A & B, NAAT
Negative results must be combined with clinical observations
and patient history.
Nucleic Acid Amplification test (NAAT)performed on the
[employer] NOW platform.
Imaging:
03/23/2025 CT abdomen/pelvis with contrast: Mild urinary bladder wall thickening. Small focus of stranding in the right anterior abdominal wall which may represent superficial contusion.
Assessment / Plan
Fevers
Transaminitis
Myalgias
Recommendations:
At present, white count normal, along with normal differential. Monoscreen negative
Procalcitonin is negative.
No apparent bacterial infectious process at present.
Discontinue further vancomycin.
Given Hx IVDA, check HIV serology. Patient has given verbal consent
Trend LFTs.
--- NOTE | 2025-03-24 12:20 | PTCARENOTE ---
Thorazine given at 1110 for hiccups with good relief. Patient sleeping at present with no hiccups noted.
[2025-03-24] MEDS: LOVENOX 40 MG SC (17:55)
--- NOTE | 2025-03-24 18:19 | PTCARENOTE ---
Patient's hiccups returned. Patient c/o chest/rib pain from hiccups. Tylenol and Thorazine given.
[2025-03-25] MEDS: NSS 1000 IV ×3 (01:43→20:36)
[2025-03-25] MEDS: TYLENOL 650 MG PO ×3 (03:28→23:01)
--- NOTE | 2025-03-25 04:33 | PTCARENOTE ---
Pt has been febrile since 2300. Pt was given Tylenol Po twice and the lowest temp the pt had was to 100.2. Ice packs was also given to control temp without any results. PAYROLL BOOKKEEPER commercial correspondent notified.
[2025-03-25] MEDS: TORADOL 15 MG IV (05:13)
[2025-03-25 07:30] VITALS: BP 122/74
--- NOTE | 2025-03-25 09:36 | W.PN.HOSP.TC ---
Addendum entered and electronically signed by Nathen De Los Santos MD 03/25/25 16:53:
Possible AVM rupture is unexpected but is NOT a complication of the buprenorphine injection
Original Note:
Today's Communication/Plan
-
see plan
Assessment / Plan
Assessment / Plan
35 M, incarcerated since 09/11, presents with one week of fevers and generalized body aches/joint pains/fever with vomiting/diarrhea.� He had buprenorphine injection in abdomen one week ago and area now indurated with CT showing possible AV
malformation with rupture versus cellulitis.�
Gen: NAD, AAOx3.
Eyes: EOMI, PERRLA, no scleral icterus.
Neck: supple.
CV: remains RRR, +S1/S2, no m/r/g.
Resp: remains CTAB, no rales, wheezes, or rhonchi.
Abd: +BS, soft, NT, ND
Skin: +Bs/soft/NT/ND
Neuro: CN 2-12 intact, non-focal.
Psych: Normal mood and affect.
03/24/25 06:01 Nose MRSA Screen - Final
No Methicillin Resistant Staphylococcus aureus isolated.
03/24/25 06:07 Blood/Venous Blood Culture - Preliminary
No Growth in 24 hours- Final report to follow
03/23/25 18:45 Blood/Venous Blood Culture - Preliminary
No Growth in 24 hours- Final report to follow
03/23/25 17:43 Nasal Swab Influenza Types A & B (MINOR) - Final
Negative for Influenza A & B, NAAT
Negative results must be combined with clinical observations
and patient history.
Nucleic Acid Amplification test (NAAT)performed on the
[employer] NOW platform.
CT A/P: Mild urinary bladder wall thickening which is nonspecific although can be seen with cystitis. Small focus of stranding in the right anterior abdominal wall which may represent superficial contusion, possible focal infection. Small vascular
malformation is possible given the mildly prominent adjacent vessel. No fluid collection. Moderate colonic stool burden.
CXR: No evidence of active cardiopulmonary disease.
SIRS:
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
-with possible underlying AVM rupture. Case discussed with Dr. Wells on 03/24/25, no further imaging or intervention needed.
-check Abd U/S with elevated transaminases/AP (transaminases now downtrending, AP now normal)
-Flu/COVID/[place]/acute hepatitis NEG
-procal NEG
-BCxs NGTD
-was on empiric Vanco. Physical exam 03/24/25 without any evidence of cellulitis on physical exam today. Seen by ID, abx stopped (currently no evidence of bacterial infection)
Other problems:
Depression: Cont Prozac
Hiccups: Thorazine PRN
FULL/Lovenox
Anticipated Discharge: 24 - 48 hours
Subjective/Interval History
-
Date of Service: March 25, 2025
No new complaints.
Objective Data
-
Vital Signs:
Vital Signs
Temp Pulse Resp BP Pulse Ox
99.7 F 86 16 122/74 97
03/25/25 07:30 03/25/25 07:30 03/25/25 07:30 03/25/25 07:30 03/25/25 07:30
I&O
03/24/25 03/25/25 03/26/25
06:59 06:59 06:59
Intake Total 960 / 960 4480 / 4480
Output Total 700 / 700 2980 / 2980
Balance 260 / 260 1500 / 1500
[2025-03-25 10:19] LABS: ALT (SGPT) 131 U/L (0-50); AST (SGOT) 64 U/L (17-59); Albumin 3.1 g/dl (3.5-5.0); Alkaline Phosphatase 89 U/L (38-126); Blood Urea Nitrogen 9 mg/dl (9-20); Calcium 8.2 mg/dl (8.4-10.2); Carbon Dioxide 29 mmol/L (22-30); Chloride 107 mmol/L (98-107); Estimated Creatinine Clearance 122 ml/min; Glucose 92 mg/dl (70-99); Potassium 4.2 mmol/L (3.5-5.1); Sodium 137 mmol/L (135-145); Total Protein 5.7 g/dl (6.3-8.2); eGFR > 60.00
--- NOTE | 2025-03-25 12:21 | CM ---
Patient seen at bedside
From [facility] - Guard present in room
PLAN: Return to [facility] when stable
report [phone]
fax [phone]
[facility] to transport
[2025-03-25 13:59] LABS: Lyme Antibody Screen, EIA Negative (Negative)
--- NOTE | 2025-03-25 15:22 | PN.CDI ---
CDI
- -
CDI:
Physician Documentation Request
Admit Date: 03/24/25 03:38
Dear Doctor Filiberto,
Please review the following and provide your response in the progress notes.
Clinical Indicators:
PN, 03/25
#...had buprenorphine injection in abdomen one week ago
#...and area now indurated with CT showing possible AV malformation
#...with rupture versus cellulitis.�
#SIRS:
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
#...-with possible underlying AVM rupture. Case discussed with Dr. Wells on 03/24/25,
#...no further imaging or intervention needed.
#-was on empiric Vanco. Physical exam 03/24/25 without any evidence of cellulitis
#...on physical exam today.
#Seen by ID, abx stopped (currently no evidence of bacterial infection)
Based on the above and your clinical assessment, please clarify the following:
Possible AVM rupture is a complication of the buprenorphine injection
Possible AVM rupture is unexpected but is NOT a complication of the buprenorphine injection
Possible AVM rupture is an expected occurrence and is not a complication of buprenorphine injection
Possible AVM rupture is inherent to/unavoidable during the surgery and is not a complication
Other(please specify)
Use of terms such as suspected, likely, concern for, or probable (associated with a specific diagnosis that is being evaluated, monitored, or treated as if it exists) are acceptable and can be coded in the inpatient setting, when documented at the
time of discharge.
Thank you,
Shannan Kearns RN BSN CCDS
CDI Specialist
Please contact via tiger text
Please use your independent medical judgment in providing your response.
--- NOTE | 2025-03-25 15:37 | PN.CDI ---
Addendum entered and electronically signed by Nathen De Los Santos MD 03/25/25 16:54:
documentation is complete
Original Note:
CDI
- -
CDI:
Physician Documentation Request
Admit Date: 03/24/25 03:38
Dear Doctor Filiberto,
Please review the following and provide your response in the progress notes.
Clinical Indicators:
PN, 03/25
#....presents with one week of fevers and generalized body aches/joint pains/fever
#...with vomiting/diarrhea.�
#...had buprenorphine injection in abdomen one week ago and area now indurated
#...with CT showing possible AV malformation with rupture versus cellulitis.�
#SIRS:
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
#...-with possible underlying AVM rupture.
#-check Abd U/S with elevated transaminases/AP (transaminases now downtrending,
#...AP now normal)
#-was on empiric Vanco. Physical exam 03/24/25
#...without any evidence of cellulitis on physical exam today.
#...Seen by ID, abx stopped (currently no evidence of bacterial infection)
Laboratory Tests
03/23/25 03/25/25
17:41 09:51
AST 232 H 64 H
ALT 275 H 131 H
Alkaline Phosphatase 145 H 89
Based on the above and your clinical assessment, please clarify which most accurately describes the patient:
SIRS due to a non-infectious source
Indicate the known or suspected etiology
Indicate if there is associated organ dysfunction, such as renal or respiratory failure
Other(please specify)
Use of terms such as suspected, likely, concern for, or probable (associated with a specific diagnosis that is being evaluated, monitored, or treated as if it exists) are acceptable and can be coded in the inpatient setting, when documented at the
time of discharge.
Thank you,
Shannan Kearns RN BSN CCDS
CDI Specialist
Please contact via tiger text
Please use your independent medical judgment in providing your response.
[2025-03-25 16:00] VITALS: BP 108/67
[2025-03-25] MEDS: LOVENOX 40 MG SC (17:16)
[2025-03-25 23:20] VITALS: BP 122/78
[2025-03-26] MEDS: NSS 1000 IV ×2 (06:04→15:56)
[2025-03-26 07:00] VITALS: BP 124/71
[2025-03-26 07:16] LABS: ALT (SGPT) 141 U/L (0-50); AST (SGOT) 74 U/L (17-59); Albumin 3.6 g/dl (3.5-5.0); Alkaline Phosphatase 103 U/L (38-126); Blood Urea Nitrogen 8 mg/dl (9-20); Calcium 8.5 mg/dl (8.4-10.2); Carbon Dioxide 26 mmol/L (22-30); Chloride 107 mmol/L (98-107); Estimated Creatinine Clearance > 125 ml/min; Glucose 83 mg/dl (70-99); Potassium 4.2 mmol/L (3.5-5.1); Sodium 141 mmol/L (135-145); Total Protein 6.4 g/dl (6.3-8.2); eGFR > 60.00
--- NOTE | 2025-03-26 10:39 | W.PN.HOSP.TC ---
Today's Communication/Plan
-
see plan
Assessment / Plan
Assessment / Plan
35 M, incarcerated since 09/11, presents with one week of fevers and generalized body aches/joint pains/fever with vomiting/diarrhea.� He had buprenorphine injection in abdomen one week ago and area now indurated with CT showing possible AV
malformation with rupture versus cellulitis.�
Gen: NAD, AAOx3.
Eyes: EOMI, PERRLA, no scleral icterus.
Neck: supple.
CV: continues to remain RRR, +S1/S2, no m/r/g.
Resp: continues to remain CTAB, no rales, wheezes, or rhonchi.
Abd: +BS, soft, NT, ND
Skin: no rashes
Neuro: CN 2-12 intact, non-focal.
Psych: Normal mood and affect.
03/24/25 06:07 Blood/Venous Blood Culture - Preliminary
No Growth in 48 hours- Final report to follow
03/23/25 18:45 Blood/Venous Blood Culture - Preliminary
No Growth in 48 hours- Final report to follow
03/24/25 06:01 Nose MRSA Screen - Final
No Methicillin Resistant Staphylococcus aureus isolated.
03/23/25 17:43 Nasal Swab Influenza Types A & B (MINOR) - Final
Negative for Influenza A & B, NAAT
Negative results must be combined with clinical observations
and patient history.
Nucleic Acid Amplification test (NAAT)performed on the
[employer] NOW platform.
CT A/P: Mild urinary bladder wall thickening which is nonspecific although can be seen with cystitis. Small focus of stranding in the right anterior abdominal wall which may represent superficial contusion, possible focal infection. Small vascular
malformation is possible given the mildly prominent adjacent vessel. No fluid collection. Moderate colonic stool burden.
Abd U/S: There is a 3.1 x 1.0 x 1.6 cm mildly ill-defined, slightly hypoechoic focus with shadowing in the subcutaneous soft tissues of the right anterior abdominal wall which is likely sequelae of prior injection. No discrete mass or fluid
collection.
CXR: No evidence of active cardiopulmonary disease.
SIRS:
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
-with possible underlying AVM rupture. Case discussed with Dr. Wells on 03/24/25, no further imaging or intervention needed.
-imaging above
-Flu/COVID/[place]/acute hepatitis/HIV/[place] NEG
-procal NEG
-BCxs NGTD
-was on empiric Vanco. Physical exam 03/24/25 without any evidence of cellulitis on physical exam today. Seen by ID, abx stopped (currently no evidence of bacterial infection)
-fever curve improving
-ID to see in follow up today
Other problems:
Depression: Cont Prozac
Hiccups: Thorazine PRN
FULL/Lovenox
Anticipated Discharge: Within 24 hours
Subjective/Interval History
-
Date of Service: March 26, 2025
Pt states he feels 'hot.'
Objective Data
-
Labs:
Laboratory Results
03/26/25
05:57
Sodium 141
Potassium 4.2
Chloride 107
Carbon Dioxide 26
BUN 8 L
Creatinine 0.7
Glucose 83
Calcium 8.5
Total Bilirubin 0.4
AST 74 H
ALT 141 H
Alkaline Phosphatase 103
Vital Signs:
Vital Signs
Temp Pulse Resp BP Pulse Ox
100.1 F 76 16 124/71 96
03/26/25 07:00 03/26/25 07:00 03/26/25 07:00 03/26/25 07:00 03/26/25 07:00
I&O
03/25/25 03/26/25 03/27/25
06:59 06:59 06:59
Intake Total 4480 / 4480 1200 / 1200
Output Total 2980 / 2980 4600 / 4600
Balance 1500 / 1500 -3400 / -3400
[2025-03-26 11:30] LABS: Hematocrit 37.3 % (39.0-52.0); Hemoglobin 12.6 g/dL (13.0-18.0); Mean Corp Hgb Conc. 33.8 g/dL (33.0-37.0); Mean Corpuscular Volume 85.4 fL (80.0-94.0); Nucleated Red Blood Cells % 0 % (-); Platelet Count 174 10^3/uL (130-400); Red Cell Dist. Width 12.2 % (11.5-14.5)
--- NOTE | 2025-03-26 13:07 | CM ---
Patient from [facility]
guards at bedside
PLAN: Return to [facility] when stable
report [phone]
fax [phone]
[facility] to transport
--- NOTE | 2025-03-26 14:00 | W.PN.ID1 ---
Date of Service
Date of Service: March 26, 2025
Today's Communication
Continue off antibiotics.
Assessment / Plan
Fevers
Transaminitis
Myalgias
Recommendations:
At present, white count normal, along with normal differential. Monoscreen negative
Procalcitonin is negative.
HIV negative.
Blood parasite stain negative
No apparent bacterial infectious process at present. Continue off antibiotics.
? Serotonin syndrome.
Trend LFTs.
Chief Complaint
-: Fever
Subjective / Review of Systems
Patient seen and examined. Reports continues to feel ill. Myalgias, generalized bodyaches.
Review of Systems: No Stiff Neck
Vital Signs / Physical Exam
Vital Signs
Vital Signs
Temp Pulse Resp BP Pulse Ox
100.1 F 76 16 124/71 96
03/26/25 07:00 03/26/25 07:00 03/26/25 07:00 03/26/25 07:00 03/26/25 07:00
Physical Exam
Constitutional: No Acute Distress, Comfortable and Non-toxic
Eyes: No Conjunctival Hemorrhage and Sclera Anicteric
Cardiovascular: S1/S2; Negative S3/S4 or Murmur
Pulmonary: Coarse and Non Labored
Gastrointestinal: Soft, Non Tender and Non Distended
Genito-Urinary: Negative CVA Tenderness
Neurological: Awake and Alert
Psychological: Calm
Objective Data
Lab Data
Lab Results
03/26/25 11:03
03/26/25 05:57
PT 13.8 Sec (11.4-14.6) 03/23/25 17:43
INR 1.03 03/23/25 17:43
APTT 35.1 Sec (23.4-35.0) H 03/23/25 17:43
Estimated Creat Clear > 125 ml/min 03/26/25 05:57
Lactic Acid 1.0 mmol/L (0.7-2.0) 03/23/25 17:43
Total Bilirubin 0.4 mg/dl (0.2-1.3) 03/26/25 05:57
AST 74 U/L (17-59) H 03/26/25 05:57
ALT 141 U/L (0-50) H 03/26/25 05:57
Alkaline Phosphatase 103 U/L (38-126) 03/26/25 05:57
Most recent labs reviewed.
Micro Results:
03/26/25 11:03 Blood Parasites Smear - Preliminary
Blood/Venous
03/24/25 06:07 Blood Culture - Preliminary
Blood/Venous No Growth in 48 hours- Final report to follow
03/23/25 18:45 Blood Culture - Preliminary
Blood/Venous No Growth in 48 hours- Final report to follow
03/24/25 06:01 MRSA Screen - Final
Nose No Methicillin Resistant Staphylococcus aureus isolated.
03/23/25 17:43 Influenza Types A & B (MINOR) - Final
Nasal Swab Negative for Influenza A & B, NAAT
Negative results must be combined with clinical observations
and patient history.
Nucleic Acid Amplification test (NAAT)performed on the
[employer] platform.
Imaging:
03/23/2025 CT abdomen/pelvis with contrast: Mild urinary bladder wall thickening. Small focus of stranding in the right anterior abdominal wall which may represent superficial contusion.
[2025-03-26 15:00] VITALS: BP 112/73
[2025-03-26] MEDS: LOVENOX 40 MG SC (17:27)
[2025-03-26] MEDS: NSS (PRESERVATIVE FREE) 8 ML IV (19:55)
[2025-03-26] MEDS: TYLENOL 650 MG PO (19:55)
[2025-03-26] MEDS: PEPCID 20 MG IV (19:56)
--- NOTE | 2025-03-26 19:59 | W.PN.UPDATE ---
Update Note
Progress Note Update
1929 RN notified OCCUPATIONAL HEALTH NURSE SUPERVISOR, Patient c/o chest pain of 03/28 VS 119/70 99.4 65 95% R 16. Patient seen and evaluated. patient resting in bed. States he has achy pain mid chest, non radiating to arm neck or shoulders. Reports this chest pain is new and its
'achy' and he has pain on his thighs. Denies chest tightness, pressure, nausea or sweating. Lungs with rhonchi cleared with cough, RRR, +BS. Likely costochondritis or GERD? EKG noted. Tylenol and Famotidine now.
checked again in 20 minutes and patient noted to be sleeping comfortably.
no new complaints this morning.
[2025-03-26 23:02] VITALS: BP 120/69
--- NOTE | 2025-03-27 02:09 | PTCARENOTE ---
19:24 Pt complaining of new onset crushing chest pain with new expiratory wheeze. Vitals Bp 119/70 T 99.4 P65 O2 95 R 16. TECHNOLOGY ENGINEER notified, and ekg ordered. EKG normal, Famotidine ordered and given along with PRN tylenol.
[2025-03-27] MEDS: NSS 1000 IV (03:10)
[2025-03-27 07:00] VITALS: BP 121/75
--- NOTE | 2025-03-27 07:55 | W.PN.HOSP.TC ---
Today's Communication/Plan
-
d/c
Assessment / Plan
Assessment / Plan
35 M, incarcerated since 09/11, presents with one week of fevers and generalized body aches/joint pains/fever with vomiting/diarrhea.� He had buprenorphine injection in abdomen one week ago and area now indurated with CT showing possible AV
malformation with rupture versus cellulitis.�
Gen: remains NAD, AAOx3.
Eyes: EOMI, PERRLA, no scleral icterus.
Neck: supple.
CV: RRR, +S1/S2, no m/r/g.
Resp: CTAB anteriorly, no rales, wheezes, or rhonchi.
Abd: +BS, soft, NT, ND, R-sided area of subcutaneous firmness at the site of prior buprenorphine injection, no fluctuance
Skin: no rashes
MSK: no TTP in the chest
Neuro: CN 2-12 intact, non-focal.
Psych: Normal mood and affect.
03/24/25 06:07 Blood/Venous Blood Culture - Preliminary
No Growth in 72 hours- Final report to follow
03/23/25 18:45 Blood/Venous Blood Culture - Preliminary
No Growth in 72 hours- Final report to follow
03/26/25 11:03 Blood/Venous Blood Parasites Smear - Final
03/24/25 06:01 Nose MRSA Screen - Final
No Methicillin Resistant Staphylococcus aureus isolated.
03/23/25 17:43 Nasal Swab Influenza Types A & B (MINOR) - Final
Negative for Influenza A & B, NAAT
Negative results must be combined with clinical observations
and patient history.
Nucleic Acid Amplification test (NAAT)performed on the
[employer] platform.
CT A/P: Mild urinary bladder wall thickening which is nonspecific although can be seen with cystitis. Small focus of stranding in the right anterior abdominal wall which may represent superficial contusion, possible focal infection. Small vascular
malformation is possible given the mildly prominent adjacent vessel. No fluid collection. Moderate colonic stool burden.
Abd U/S: There is a 3.1 x 1.0 x 1.6 cm mildly ill-defined, slightly hypoechoic focus with shadowing in the subcutaneous soft tissues of the right anterior abdominal wall which is likely sequelae of prior injection. No discrete mass or fluid
collection.
CXR: No evidence of active cardiopulmonary disease.
SIRS:
-recent buprenorphine injection 1 week [employer]
-with possible underlying AVM rupture. Case discussed with Dr. Wells on 03/24/25, no further imaging or intervention needed.
-imaging above
-Flu/COVID/Cloud/acute hepatitis/HIV/Lyme NEG
-procal NEG
-BCxs NGTD
-was on empiric Vanco. Physical exam 03/24/25 without any evidence of cellulitis. Seen by ID, abx stopped (currently no evidence of bacterial infection)
-fever curve improving (last fever 03/25/25 at 1241)
-case discussed with Dr. Galeano at 1000 on 03/27/25. He currently does not she any evidence of active infection at this time and, from his standpoint, the pt can be discharged.
CP:
-subjective symptoms consistent with myalgias/arthralgias related to febrile illness
-ECG (read by me): NSR @ 60, nl axis/intervals, no acute ST/TW changes
-CP has resolved
-check trop x 1 now
Other problems:
Depression: Cont Prozac
Hiccups: Thorazine PRN
FULL/Lovenox
Medically cleared for d/c pending troponin. Case management aware.
Total time spent on d/c = 34 min. This included today's physical exam, progress note, review of laboratory and diagnostic data, preparation of discharge documents and prescriptions, and discussions about the pt's hospital course and discharge plan
with the patient and other medical coding auditor involved in the patient's care.
Anticipated Discharge: Today
Subjective/Interval History
-
Date of Service: March 27, 2025
Pt had CP and thigh pain overnight that he described as 'aching in my bones' which has now resolved.
Objective Data
-
Vital Signs:
Vital Signs
Temp Pulse Resp BP Pulse Ox
98.4 F 62 16 120/69 95
03/26/25 23:02 03/26/25 23:02 03/26/25 23:02 03/26/25 23:02 03/26/25 23:02
I&O
03/26/25 03/27/25 03/28/25
06:59 06:59 06:59
Intake Total 1200 / 1200 800 / 800
Output Total 4600 / 4600
Balance -3400 / -3400 800 / 800
[2025-03-27 08:27] LABS: Hematocrit 37.9 % (39.0-52.0); Hemoglobin 12.9 g/dL (13.0-18.0); Mean Corp Hgb Conc. 34.0 g/dL (33.0-37.0); Mean Corpuscular Volume 85.7 fL (80.0-94.0); Platelet Count 179 10^3/uL (130-400); Red Cell Dist. Width 12.4 % (11.5-14.5)
[2025-03-27 09:02] LABS: ALT (SGPT) 134 U/L (0-50); AST (SGOT) 68 U/L (17-59); Albumin 3.5 g/dl (3.5-5.0); Alkaline Phosphatase 99 U/L (38-126); Blood Urea Nitrogen 10 mg/dl (9-20); Calcium 8.6 mg/dl (8.4-10.2); Carbon Dioxide 25 mmol/L (22-30); Chloride 107 mmol/L (98-107); Estimated Creatinine Clearance > 125 ml/min; Glucose 138 mg/dl (70-99); Potassium 4.3 mmol/L (3.5-5.1); Sodium 139 mmol/L (135-145); Total Protein 6.5 g/dl (6.3-8.2); eGFR > 60.00
--- NOTE | 2025-03-27 10:55 | CM ---
Spoke with Helena at [facility]
dc today today per hospitalist
pending troponin
PLAN: Return to [facility] when stable
report [phone]
fax [phone]
[facility] to transport
[2025-03-27 11:03] LABS: Troponin I < 0.012 ng/ml
--- NOTE | 2025-03-27 11:40 | W.PN.ID1 ---
Date of Service
Date of Service: March 27, 2025
Today's Communication
Continue off antibiotics.
Assessment / Plan
Fevers
Transaminitis
Myalgias
Recommendations:
At present, white count normal, along with normal differential. Monoscreen negative
Procalcitonin is negative.
HIV negative.
Blood parasite stain negative
No apparent bacterial infectious process at present. Continue off antibiotics.
Chief Complaint
-: Fever
Subjective / Review of Systems
Patient seen and examined. Overall temp curve improved.
Review of Systems: No Fever
Vital Signs / Physical Exam
Vital Signs
Vital Signs
Temp Pulse Resp BP Pulse Ox
98.3 F 58 17 121/75 96
03/27/25 07:00 03/27/25 07:00 03/27/25 07:00 03/27/25 07:00 03/27/25 07:00
Physical Exam
Constitutional: No Acute Distress, Comfortable and Non-toxic
Eyes: No Conjunctival Hemorrhage and Sclera Anicteric
Cardiovascular: S1/S2; Negative S3/S4 or Murmur
Pulmonary: Clear and Non Labored
Gastrointestinal: Soft, Non Distended and Normal Bowel Sounds
Neurological: Awake and Alert
Psychological: Calm
Objective Data
Lab Data
Lab Results
03/27/25 08:09
03/27/25 08:09
PT 13.8 Sec (11.4-14.6) 03/23/25 17:43
INR 1.03 03/23/25 17:43
APTT 35.1 Sec (23.4-35.0) H 03/23/25 17:43
Estimated Creat Clear > 125 ml/min 03/27/25 08:09
Lactic Acid 1.0 mmol/L (0.7-2.0) 03/23/25 17:43
Total Bilirubin 0.4 mg/dl (0.2-1.3) 03/27/25 08:09
AST 68 U/L (17-59) H 03/27/25 08:09
ALT 134 U/L (0-50) H 03/27/25 08:09
Alkaline Phosphatase 99 U/L (38-126) 03/27/25 08:09
Most recent labs reviewed.
Micro Results:
03/24/25 06:07 Blood Culture - Preliminary
Blood/Venous No Growth in 72 hours- Final report to follow
03/23/25 18:45 Blood Culture - Preliminary
Blood/Venous No Growth in 72 hours- Final report to follow
03/26/25 11:03 Blood Parasites Smear - Final
Blood/Venous
03/24/25 06:01 MRSA Screen - Final
Nose No Methicillin Resistant Staphylococcus aureus isolated.
03/23/25 17:43 Influenza Types A & B (MINOR) - Final
Nasal Swab Negative for Influenza A & B, NAAT
Negative results must be combined with clinical observations
and patient history.
Nucleic Acid Amplification test (NAAT)performed on the
[employer] platform.
Imaging:
03/23/2025 CT abdomen/pelvis with contrast: Mild urinary bladder wall thickening. Small focus of stranding in the right anterior abdominal wall which may represent superficial contusion.
Care Review
Plan reviewed with: Physician (Hospitalist)
--- NOTE | 2025-03-27 14:11 | W.DCSUMMARY ---
Discharge Summary
Discharge Data
Date of Admission: 03/24/25
Date of Discharge: 03/27/25
-
Pending Results: No
Hospital Course
Primary diagnoses:
fever/SIRS, likely viral
Chest pain
Secondary diagnoses:
Depression
Hiccups
Consultants:
Infectious disease
Imaging:
CT A/P: Mild urinary bladder wall thickening which is nonspecific although can be seen with cystitis. Small focus of stranding in the right anterior abdominal wall which may represent superficial contusion, possible focal infection. Small vascular
malformation is possible given the mildly prominent adjacent vessel. No fluid collection. Moderate colonic stool burden.
Abd U/S: There is a 3.1 x 1.0 x 1.6 cm mildly ill-defined, slightly hypoechoic focus with shadowing in the subcutaneous soft tissues of the right anterior abdominal wall which is likely sequelae of prior injection. No discrete mass or fluid
collection.
CXR: No evidence of active cardiopulmonary disease.
35-year-old male who [facility] from [facility] who presented with a chief complaint of fever as outlined in the H&P done on admission. Hospital course per problem list:
SIRS: Patient met SIRS criteria on admission. He had a recent buprenorphine injection into his right abdomen 1 week [employer]. Imaging above and with with possible underlying AVM rupture. Case discussed with Dr. Wells on 03/24/25, no further imaging
or intervention needed. Flu/COVID/[place]/acute hepatitis/HIV/Lyme/Procal/blood parasites smear NEG. BCxs NGTD at the time of discharge. Patient was initially on IV vancomycin. Physical exam 03/24/25 without any evidence of cellulitis. Seen by ID and
antibiotics were. The patient's fever curve improved (last fever 03/25/25 at 1241). The case was discussed with Dr. Galeano at 1000 on 03/27/25. As the patient was not showing any evidence of active infection at that time, from his standpoint the
patient was medically cleared discharged.
Chest pain: The patient had subjective symptoms consistent with myalgias/arthralgias related to febrile illness. ECG (read by me): NSR @ 60, nl axis/intervals, no acute ST/TW changes. Patient's chest pain resolved and his troponins were negative.
Discharge Plan
-
Patient Disposition: [facility]
Discharge Diagnosis/Procedures: fever, likely viral
Condition: Good
Diet: As tolerated
Activity: As tolerated
Driving Restrictions: As prior to admission
Blood Work: CMP and CBC in 1 week, script from PCP
Referrals:
NONE,* [Family Provider, Internal Medicine] - in less than 1 week
Prescriptions:
Continued
ondansetron HCl 4 MG tablet
4 mg PO TIDPRN PRN (Reason: nausea/vomiting)
buprenorphine 300 mg/1.5 mL Solution, Extended Rel Syringe
300 mg SC QMONTH
Discharge Orders:
Discharge Patient (As Directed); Ordered 03/27/25
Ordered By: Nathen De Los Santos
Discharge Date and Time
Print Language: HEBREW
[2025-03-27 15:00] VITALS: BP 112/65
--- NOTE | 2025-03-27 16:30 | PTCARENOTE ---
patient has denied complaints all day, tolerating diet, independent, but shackled to bed,care home guards at bedside. vss, for discharge back to care home.
== END 2025-03-27 16:31 | DRG 300 ==
LOC: 3 WEST ACU 03:38
PROVIDERS: Nurse Practitioner Family; Physician Assistant; ADMITTING PHYSICIAN Student in an Organized Health Care Education/Training Program; ATTENDING PHYSICIAN Internal Medicine; CONSULT PHYSICIAN Internal Medicine Infectious Disease; EMERGENCY PHYSICIAN Student in an Organized Health Care Education/Training Program
DX: Q27.9 Congenital malformation of peripheral vascular system, unspecified (principal); R65.10 Systemic inflammatory response syndrome (SIRS) of non-infectious origin without acute organ dysfunction; R50.9 Fever, unspecified; Z11.52 Encounter for screening for COVID-19; F32.A Depression, unspecified
CPT/HCPCS: 71046; 74177; 76705; 80048; 80053; 80306; 80307; 81003; 81015; 83605; 83690; 83735; 84145; 84484; 85025; 85027; 85610; 85730; 86308; 86618; 86704; 86709; 86803; 87015; 87040; 87070; 87207; 87340; 87389; 87502; 87811; 93005; 96361; 96374; 96375; 99285; 99406; Q9967